=== PATIENT | female | born 1955 | race Caucasian/White ===

== ENCOUNTER 2016-10-27 02:22 | Emergency (ER) | payer BC ==
[~2016-10-27] VITALS: Ht 156.2 cm; Wt 73.0 kg
[2016-10-27 02:26] VITALS: TEMP 36.9; Ht 156.2 cm; Wt 73.0 kg
[2016-10-27] MEDS ORDERED: KETOROLAC TROMETHAMINE 30 MG/ML VIAL IV STA (02:41)
[2016-10-27] MEDS ORDERED: MoRPHine SULFATE 4 MG/ML 1 ML CARP\\VIAL IV STA ×2 (02:41→03:27)
[2016-10-27] MEDS ORDERED: ONDANSETRON INJ 2 MG/ML 2 ML VIAL IV STA (02:41)
[2016-10-27 03:01] LABS: BASO % 0.1 %; BASO ABS # 0.01 K/uL (0-0.2); COMPLETE YES; EOS % 0.9 %; HEMATOCRIT 39.2 % (37-47); IG% 0.5 %; LYMPH % 24.3 %; LYMPH ABS # 3.11 K/uL (1.2-3.4); MEAN CELL VOLUME 91.8 fL (80-100); MEAN CORPUSCULAR HEMOGLOBIN 31.4 pg (25-34); MEAN CORPUSCULAR HGB CONC 34.2 g/dl (32-36); MEAN PLATELET VOLUME 9.2 fL (7.4-10.4); MONO % 10.4 %; NEUT % 63.8 %; PLATELET COUNT 269 K/uL (130-400); RED BLOOD COUNT 4.27 M/uL (4.2-5.4); WHITE BLOOD COUNT 12.79 K/uL (4.8-10.8)
--- NOTE | 2016-10-27 03:38 | EMERGENCY ROOM VISIT NOTE ---
History Report prepared by Mady: Joellen Frias Under the Supervision of: Dr. Taya Bazan D.O. 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 The patient states that she has been seen for her hip pain before and had an X-Ray showing arthritis and tendinitis but states she has not had a MRI. The patient states that she was prescribed a 12 day course of prednisone which she finished yesterday. She states that while taking the medication the pain was released but while she was tapering off the medication the pain returned. She states that movement increases her pain and she is now unable to lift her right leg. The patient denies any fever, chills or vomiting but states she has been experiencing nausea. 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 A total of 10 systems reviewed and were otherwise negative. Past Medical & Surgical Medical Problems: (1) Fracture of distal fibula Family History Patient reports no known family medical history. Social History Smoking Status: Never Smoker Drug Use: none Marital Status: Housing Status: lives with family Occupation Status: employed Current/Historical Medications Scheduled PRN Oxycodone/Acetaminophen 5MG/325MG (Percocet 5MG/325MG), 1 TABLET PO Q4H PRN for Pain Allergies Coded Allergies: Penicillins (Verified Allergy, Mild, HIVES, 01/16/14) Physical Exam Vital Signs Date Time Temp Pulse Resp B/P Pulse Ox O2 Delivery O2 Flow Rate FiO2 10/27/16 04:20 78 16 111/53 94 Room Air 10/27/16 02:26 36.9 87 20 127/83 94 Room Air Physical Exam HEENT: Head - normocephalic and atraumatic Pupils are equal, round, and reactive to light. Extraocular eye muscles are intact, and sclera are anicteric. Nose - moist nasal mucosa without discharge. Mouth - moist buccal mucosa. Oropharynx is nonerythematous and there is no tonsillar exudate or edema noted. Neck: Supple; no JVD, nuchal rigidity, cervical lymphadenopathy. Heart: Regular rate and rhythm. There is a normal S1 and S2 with no murmurs, clicks, or gallops appreciated. Lungs: Clear to auscultation bilaterally with no wheezes, rales, or rhonchi. Abdomen: Soft, completely nontender, nondistended, with good bowel sounds. There are no palpable pulsatile masses or hepatosplenomegaly. There is no guarding, rigidity, or rebound noted. Extremities: No evidence of cyanosis, clubbing, or edema. There are easily palpable peripheral pulses. Exquisite tenderness to palpation over the flexor tendons of the right hip. Skin: warm and dry with good turgor and no rashes. Medical Decision & Procedures Laboratory Results 10/27/16 02:50 Red Blood Count 4.27, Mean Corpuscular Volume 91.8, Mean Corpuscular Hemoglobin 31.4, Mean Corpuscular Hemoglobin Concent 34.2, Mean Platelet Volume 9.2, Neutrophils (%) (Auto) 63.8, Lymphocytes (%) (Auto) 24.3, Monocytes (%) (Auto) 10.4, Eosinophils (%) (Auto) 0.9, Basophils (%) (Auto) 0.1, Neutrophils # (Auto ) 8.15, Lymphocytes # (Auto) 3.11, Monocytes # (Auto) 1.33, Eosinophils # (Auto ) 0.12, Basophils # (Auto) 0.01 Test 10/27/16 02:50 White Blood Count 12.79 K/uL (4.8-10.8) Red Blood Count 4.27 M/uL (4.2-5.4) Hemoglobin 13.4 g/dL (12.0-16.0) Hematocrit 39.2 % (37-47) Mean Corpuscular Volume 91.8 fL (80-100) Mean Corpuscular Hemoglobin 31.4 pg (25-34) Mean Corpuscular Hemoglobin Concent 34.2 g/dl (32-36) Platelet Count 269 K/uL (130-400) Mean Platelet Volume 9.2 fL (7.4-10.4) Neutrophils (%) (Auto) 63.8 % Lymphocytes (%) (Auto) 24.3 % Monocytes (%) (Auto) 10.4 % Eosinophils (%) (Auto) 0.9 % Basophils (%) (Auto) 0.1 % Neutrophils # (Auto) 8.15 K/uL (1.4-6.5) Lymphocytes # (Auto) 3.11 K/uL (1.2-3.4) Monocytes # (Auto) 1.33 K/uL (0.11-0.59) Eosinophils # (Auto) 0.12 K/uL (0-0.5) Basophils # (Auto) 0.01 K/uL (0-0.2) RDW Standard Deviation 43.2 fL (36.4-46.3) RDW Coefficient of Variation 12.9 % (11.5-14.5) Immature Granulocyte % (Auto) 0.5 % Immature Granulocyte # (Auto) 0.07 K/uL (0.00-0.02) Erythrocyte Sedimentation Rate 9 mm/hr (0-21) C-Reactive Protein 2.05 mg/dl (0-0.29) Laboratory results per my review. Medications Administered Medications (Trade) Dose Ordered Sig/Luisa Route Start Time Stop Time Status Last Admin Dose Admin Ketorolac Tromethamine (Toradol Inj) 30 mg NOW STAT IV 10/27/16 02:41 10/27/16 02:43 DC 10/27/16 03:03 30 MG Morphine Sulfate (MoRPHine SULFATE INJ) 4 mg NOW STAT IV 10/27/16 02:41 10/27/16 02:43 DC 10/27/16 03:02 4 MG Ondansetron HCl (Zofran Inj) 4 mg NOW STAT IV 10/27/16 02:41 10/27/16 02:43 DC 10/27/16 03:02 4 MG Morphine Sulfate (MoRPHine SULFATE INJ) 4 mg NOW STAT IV 10/27/16 03:27 10/27/16 03:28 DC 10/27/16 03:41 4 MG Procedure Medications Administered: Zofran Inj Morphine Sulfate Toradol Inj Percocet 5/325 MG Home Pack ED Course 0237: Past medical records reviewed. The patient was evaluated in room A2. A complete history and physical exam was performed. An IV lock was initiated and labs are drawn as above. 0241: Ordered Zofran Inj 4 mg IV, Morphine Sulfate 4 mg IV, Toradol Inj 30 mg IV. 0325: The patient states that she had relief from the pain but the pain is starting to return. 0327: Ordered Morphine Sulfate 4 mg IV 0342: I revaluated the patient and she states she is feeling much better. 0410: Upon reevaluation, the patient is feeling better. I discussed findings and results with her. She verbalized agreement of the treatment plan. The patient was discharged home. 0415: Ordered Oxycodone/Acetaminophen 1 homepack PO. Medical Decision The patient is a 61 year old female who presents to the ED with right hip pain. Differential diagnosis includes bursitis, tendonitis, septic joint. Labs: White count 12.7 Stable H&H SED Rate 9 C-Reaction Protein 2.05 The patient has been followed by Dr. Meier and had injections in her right hip for bursitis and tendinitis. She has recently finished a course of steroids. The patient's pain became unbearable tonight. She received IV Toradol and morphine with significant relief of her pain. She will be given a prescription for Percocet to use at home and have close follow-up with her orthopedic surgeon. She is afebrile and has no significant leukocytosis. Sedimentation rate was normal but C-reactive protein was slightly elevated. [place] Drug Monitoring Program Search Results: patient reviewed within database, no issues identified Impression Primary Impression: Tendonitis of right hip Scribe Attestation The scribe's documentation has been prepared under my direction and personally reviewed by me in its entirety. I confirm that the note above accurately reflects all work, treatment, procedures, and medical decision making performed by me. Departure Information Dispostion Home / Self-Care Prescriptions Oxycodone/Acetaminophen 5MG/325MG (PERCOCET 5MG/325MG) Tab 1 TABLET PO Q4H Y for Pain, #20 TAB Prov: Taya Bazan D.O. 10/27/16 Referrals StefanJanuary IRINA (PCP) Forms HOME CARE DOCUMENTATION FORM, IMPORTANT VISIT INFORMATION, WORK / SCHOOL INSTRUCTIONS Patient Instructions A Signature Page, My [employer] Additional Instructions Rest. Take percocet - 1 tab. every 4 hours for pain Take a stool softner Return to the ER for worsening symptoms or fever
[2016-10-27] MEDS ORDERED: PERCOCET HOME PACK PO ONE (04:15)
[2016-10-27] MEDS ORDERED: OXYC-57 PO (04:18)
[2016-10-27 04:20] VITALS: BP 111/53; PULSE 78; O2SAT 94
== END 2016-10-27 04:38 | disposition home or self-care (01) ==
LOC: C.EDB 02:23 → C.EDA 04:38
DX: M65.88 Other synovitis and tenosynovitis, other site (principal)

== ENCOUNTER → 2016-11-01 | Outpatient (CLI) | payer BC ==
[~2016-11-01] MED LIST: OXYC-57 PO
--- NOTE | 2016-11-02 10:23 | DIAGNOSTIC IMAGING REPORT ---
MRI OF THE RIGHT HIP WITHOUT CONTRAST CLINICAL HISTORY: Persistent right hip pain. COMPARISON STUDY: None TECHNIQUE: Utilizing a 1.5 Evonne magnet and dedicated coil, multiplanar, multiecho imaging of the right hip was performed without intravenous or intraarticular contrast. FINDINGS: The sacroiliac joints and symphysis pubis are intact. No marrow replacement or marrow edema is identified. There is no evidence for avascular necrosis of the femoral heads. No mass or fluid collection is shown adjacent to the right hip. There is mild edema within the musculature adjacent to the right hip and right hemipelvis, including minimal edema adjacent to the proximal hamstrings. This is nonspecific. No pelvic lymphadenopathy is present. IMPRESSION: 1. No marrow edema or marrow replacement. 2. Mild to moderate arthritis of the right hip. 3. Mild multifocal muscular edema adjacent to the right hip and right hemipelvis. This finding is nonspecific and differential considerations include traumatic and inflammatory etiologies. Electronically signed by: Bridger Triana M.D. 11/02/2016 10:22 AM Dictated Date/Time: 11/01/2016 4:43 PM
== END | disposition home or self-care (01) ==
LOC: C.MRIBC 15:23
PROVIDERS: ATTEND Orthopaedic Surgery
DX: M16.11 Unilateral primary osteoarthritis, right hip (principal)

== ENCOUNTER → 2016-12-27 | Outpatient (CLI) | payer BC ==
--- NOTE | 2016-12-27 14:45 | DIAGNOSTIC IMAGING REPORT ---
FLUOROSCOPICALLY GUIDED RIGHT HIP ANESTHETIC AND STEROID INJECTION CLINICAL HISTORY: Right hip pain COMPARISON STUDY: MRI dated 11/01/2016 FLUOROSCOPY TIME: 11 seconds. A single fluoroscopic spot image was obtained. FINDINGS: A timeout was performed. The risks of the procedure were explained to the patient and informed consent was obtained. The patient was prepped and draped in sterile fashion. The skin was anesthetized 1% lidocaine. Under fluoroscopic guidance, a 22-gauge spinal needle was introduced into the joint capsule. Water-soluble contrast was injected to document intratesticular location. A single fluoroscopic spot image was obtained. 3 cc of 1% Xylocaine, and 4 mg of dexamethasone, and 20 mg of Depo-Medrol were instilled into the joint capsule. IMPRESSION: Successful intra-articular right hip injection. Electronically signed by: Jamshid Neal M.D. 12/27/2016 2:43 PM Dictated Date/Time: 12/27/2016 2:41 PM
== END | disposition home or self-care (01) ==
LOC: C.RADBC 13:38
PROVIDERS: ATTEND Orthopaedic Surgery
DX: M25.551 Pain in right hip (principal)

== ENCOUNTER → 2017-01-06 | Outpatient (CLI) | payer BC ==
--- NOTE | 2017-01-06 16:08 | MAMMOGRAPHY REPORT ---
BILATERAL DIGITAL SCREENING MAMMOGRAM WITH CAD: 01/06/2017 CLINICAL HISTORY: Routine screening. Patient has no complaints. TECHNIQUE: Bilateral CC and MLO views were obtained. Current study was also evaluated with a Compu ter Aided Detection (CAD) system. COMPARISON: Comparison is made to exams dated: 12/12/2015 mammogram, 11/16/2013 mammogram, 12/02/2014 m ammogram, 11/11/2012 mammogram, 10/29/2011 mammogram, and 10/18/2010 mammogram - [facility]. BREAST COMPOSITION: There are scattered areas of fibroglandular density in both breasts. FINDINGS: There is stable asymmetry in the left breast. Mild vascular calcification bilaterally. N o suspicious mass, architectural distortion or cluster of microcalcifications is seen. IMPRESSION: ACR BI-RADS CATEGORY 1: NEGATIVE There is no mammographic evidence of malignancy. A 1 year screening mammogram is recommended. The p atient will receive written notification of the results. Approximately 10% of breast cancers are not detected with mammography. A negative mammographic repor t should not delay biopsy if a clinically suggestive mass is present. Carolina Trejo M.D. ay/:01/06/2017 16:03:13 Dial Mounter: Jackie BUNN(R)(M), [facility] letter sent: Normal 1/2 BI-RADS Code: ACR BI-RADS Category 1: Negative
== END | disposition home or self-care (01) ==
LOC: C.MAMM 13:30
PROVIDERS: ATTEND Family Medicine
DX: Z12.31 Encounter for screening mammogram for malignant neoplasm of breast (principal)

== ENCOUNTER → 2018-01-13 | Outpatient (CLI) | payer OTHER ==
--- NOTE | 2018-01-13 14:57 | MAMMOGRAPHY REPORT ---
BILATERAL DIGITAL SCREENING MAMMOGRAM TOMOSYNTHESIS WITH CAD: 01/13/2018 CLINICAL HISTORY: Routine screening. Patient has no complaints. TECHNIQUE: Breast tomosynthesis in addition to standard 2D mammography was performed. Current study was also evaluated with a Computer Aided Detection (CAD) system. COMPARISON: Comparison is made to exams dated: 01/06/2017 mammogram, 12/12/2015 mammogram, 12/02/2014 ma mmogram, 11/16/2013 mammogram, 11/11/2012 mammogram, and 10/18/2010 mammogram - [facility]. BREAST COMPOSITION: There are scattered areas of fibroglandular density in both breasts. FINDINGS: No suspicious masses, calcifications, or areas of architectural distortion are noted in ei ther breast. There has been no significant interval change compared to prior exams. Scattered bilater al benign-appearing calcifications are not significantly changed. IMPRESSION: ACR BI-RADS CATEGORY 2: BENIGN There is no mammographic evidence of malignancy. A 1 year screening mammogram is recommended. The pa tient will receive written notification of the results. Approximately 10% of breast cancers are not detected with mammography. A negative mammographic report should not delay biopsy if a clinically suggestive mass is present. Loren Alvarez M.D. /:01/13/2018 07:31:33 Cloth Mercerizer Back Tender: Andressa Abreu, [facility] letter sent: Normal 1/2 BI-RADS Code: ACR BI-RADS Category 2: Benign
== END | disposition home or self-care (01) ==
LOC: C.MAMM 07:08
PROVIDERS: ATTEND Physician Assistant
DX: Z12.31 Encounter for screening mammogram for malignant neoplasm of breast (principal)

== ENCOUNTER 2019-01-08 09:14 | Inpatient (IN) ==
--- NOTE | 2018-12-15 11:31 | Anesthesiology Consultation ---
Date of Service December 15, 2018 Assessment & Plan (1) Encounter for pre-operative examination: Chart Review Chart Review: Acceptable Risk for Surgery and Patient seen in Pre Admission Testing Teaching & Discussion Instructed NPO after midnight before surgery, except medications with 15 cc of water. Medication instructions provided according to the PAT guidelines. History Surgery Operation Date: 01/08/19 13:05 Proposed Procedures p Right Total Knee Arthroplasty - Shar Elliott, Height/Weight Height: 5 ft 2 in Weight: 81.2 kg Allergies Allergy/AdvReac Type Severity Reaction Status Date / Time Penicillins Allergy Mild HIVES,RASH Verified 12/08/18 08:39 atorvastatin [From Lipitor] AdvReac Unknown Joint Pain Verified 12/08/18 08:39 Medications Home Medications Medication Instructions Recorded Confirmed Last Taken Black Seed Oil 5 ml PO BID 12/08/18 12/08/18 Unknown Ca carb-Ca gluc-Mg ox-Mg gluco 1 tab PO BID 12/08/18 12/08/18 Unknown [Calcium Magnesium] levothyroxine [Synthroid] 25 mcg PO QAM 12/08/18 12/08/18 Unknown meclizine 12.5 mg PO TID PRN 12/08/18 12/08/18 Unknown [id number] 2 tab PO BID 12/08/18 12/08/18 Unknown [Eye [place] Advantage] Past Medical History Medical History Chronic back pain TO RIGHT LEG Depression HX GERD (gastroesophageal reflux disease) Hypothyroidism Migraine HX Osteoarthritis PMR (polymyalgia rheumatica) Vertigo F/U PCP-DOING EXERCISES Past Surgical History Surgical History H/O foot surgery BUNIONECTOMY History of bilateral tubal ligation History of carpal tunnel release R/L History of eye surgery MUSCLE SURG A CHILD History of hysterectomy OVARIES REMAIN Trigger finger SURGERY R HAND Past Anesthesia History No Hx of Anesthesia Complications and No Family Hx of Anesthesia Complications History of PONV No Motion Sickness Screening History of Motion Sickness: Yes (occ) Social History Smoking Status: Never smoker Do You Dip or Chew Tobacco: No Hx Alcohol Use: Yes Alcohol type: wine alcohol intake frequency: a few times a week Hx Substance Use: No substance use type: does not use Exercise / Class Metabolic Activity II 4-5 Yardwork/Stairs/Walk up hill (denies CP or SOB with stairs) Review of Systems Pt denies any recent chest pain, shortness of breath, palpitations, fever or URI. +recent mild cough/cold, resolving with OTC treatment Physical Exam Vital Signs BP: 133/83 (pt reports this is high for her, does feel anxious today) P: 73 bpm SPO2: 97% RA T: 98.1 F R: 16 ENMT Mouth: + dental bridge (upper R side) and + dental restorations (temporary crown to be finished 12/16); no chipped teeth and no loose teeth Thyromental Distance: > or= 3.5 Finger Breadths (3.5) Mallampati Class: III Neck normal visual inspection; neck extension not limited Respiratory normal respiratory effort Auscultation: lungs clear to auscultation bilaterally Cardiovascular Rate/Rhythm: regular rate and regular rhythm Heart Sounds: no murmur Vessels: no carotid bruit Extremities: no edema Testing Electrocardiogram Date: 12/15/18 Findings: + NSR @ (69) Voltage criteria for LVH. Chest X-Ray Date: 12/15/18 Findings: + NAD Laboratory Results 12/15/18 11:25 12/15/18 11:25 Blood Type O Negative 12/15/18 11:25 Antibody Screen NEGATIVE 12/15/18 11:25 PT 9.4 Seconds (9.0-12.0) 12/15/18 11:25 INR 0.9 (0.9-1.1) 12/15/18 11:25 APTT 23.8 Seconds (21.0-31.0) 12/15/18 11:25
--- NOTE | 2018-12-15 11:32 | PAT Medication Instructions ---
Medication Instructions Date of Service December 15, 2018 Home Medications Black Seed Oil 5 ml PO BID [Calcium Magnesium] 1 tab PO BID levothyroxine [Synthroid] 25 mcg PO QAM meclizine 12.5 mg PO TID PRN [Eye [place] Advantage] 2 tab PO BID STOP taking 2 weeks before surgery Black Seed Oil 5 ml PO BID [Eye [place] Advantage] 2 tab PO BID DO NOT take the morning of surgery [Calcium Magnesium] 1 tab PO BID Take morning of surgery With a small sip of water, OTHERWISE NOTHING TO EAT OR DRINK AFTER MIDNIGHT: levothyroxine [Synthroid] 25 mcg PO QAM meclizine 12.5 mg PO TID PRN (if needed) Take evening before surgery [Calcium Magnesium] 1 tab PO BID meclizine 12.5 mg PO TID PRN (if needed) Other Notes If you have any questions please call us at [phone] or [phone] or [phone] or [phone]
--- NOTE | 2018-12-15 12:09 | XRay Report ---
XR chest Pre-admission PA/Lat HISTORY: 63 years-old Female pat preoperative exam. No acute chest complaints COMPARISON: None available TECHNIQUE: PA and lateral views of the chest FINDINGS: Cardiomediastinal and hilar silhouettes are within normal limits. There is no pneumothorax, pleural e ffusion, focal airspace consolidation or overt pulmonary edema. Degenerative changes of the shoulders and spine. IMPRESSION: No acute process. The above report was generated using voice recognition software. It may contain grammatical, syntax o r spelling errors. Electronically signed by: Suresh Crump M.D. 12/15/2018 12:07 PM
[2018-12-15 12:55] LABS: Basophils # (auto) 0.01 K/uL (0-0.2); Basophils % (auto) 0.2 %; Eosinophils # (auto) 0.13 K/uL (0-0.5); Eosinophils % (auto) 2.3 %; Hemoglobin 13.2 g/dL (12.0-16.0); Immature Granulocytes # (auto) 0.01 K/uL (0.00-0.02); Immature Granulocytes % (auto) 0.2 %; Lymphocytes # (auto) 2.12 K/uL (1.2-3.4); Mean Corpuscular Volume 94.3 fL (80-100); Mean Platelet Volume 9.6 fL (7.4-10.4); Monocytes # (auto) 0.42 K/uL (0.11-0.59); Monocytes % (auto) 7.3 %; Neutrophils # (auto) 3.04 K/uL (1.4-6.5); Platelet Count 281 K/uL (130-400); RDW Coefficient of Variation 12.6 % (11.5-14.5); RDW Standard Deviation 43.2 fL (36.4-46.3); Red Blood Count 4.24 M/uL (4.2-5.4); White Blood Count 5.73 K/uL (4.8-10.8)
[2018-12-15 13:07] LABS: INR 0.9 (0.9-1.1); Partial Thromboplastin Ratio 0.9; Partial Thromboplastin Time 23.8 Seconds (21.0-31.0); Prothrombin Time 9.4 Seconds (9.0-12.0)
[2018-12-15 13:30] LABS: BUN Creatinine Ratio 22.8 (10-20); Calcium 9.1 mg/dl (8.5-10.1); Creatinine Clr Calc Pharmacy 81.4 ml/min; Est GFR (African American) 106.4; Est GFR (Non-African American) 91.8; Potassium 3.5 mmol/L (3.5-5.1)
--- NOTE | 2019-01-07 20:24 | History & Physical Report ---
Date of Service January 07, 2019 Assessment & Plan (1) Osteoarthritis of right knee: We will proceed with a right total knee arthroplasty. Postoperatively she will be started on aspirin for DVT prophylaxis. She will be kept overnight at the hospital for postoperative medical management. She plans to use energy physical therapy upon discharge. Present on Admission?: Yes History of Present Illness Chief Complaint: Primary osteoarthritis of the right knee Primary Care Provider: Astrid Aviles PA-C Patient is a pleasant 63-year-old female who is been dealing with chronic increasing right knee pain. X-rays, MRI, and clinical examination have all been diagnostic for advanced osteoarthritis of the right knee. After failing extensive conservative treatment, she has elected proceed with a right total knee arthroplasty. Allergies Allergy/AdvReac Type Severity Reaction Status Date / Time Penicillins Allergy Mild HIVES,RASH Verified 12/08/18 08:39 atorvastatin [From Lipitor] AdvReac Unknown Joint Pain Verified 12/08/18 08:39 Home Medications Home Medications Medication Instructions Recorded Confirmed Type Black Seed Oil 5 ml PO BID 12/08/18 12/08/18 History Ca carb-Ca gluc-Mg ox-Mg gluco 1 tab PO BID 12/08/18 12/08/18 History [Calcium Magnesium] levothyroxine [Synthroid] 25 mcg PO QAM 12/08/18 12/08/18 History meclizine 12.5 mg PO TID PRN 12/08/18 12/08/18 History [id number] 2 tab PO BID 12/08/18 12/08/18 History [Eye [place] Advantage] Past Med/Surg History Medical History Chronic back pain TO RIGHT LEG Depression HX GERD (gastroesophageal reflux disease) Hypothyroidism Migraine HX Osteoarthritis PMR (polymyalgia rheumatica) Vertigo F/U PCP-DOING EXERCISES Surgical History H/O foot surgery BUNIONECTOMY History of bilateral tubal ligation History of carpal tunnel release R/L History of eye surgery MUSCLE SURG A CHILD History of hysterectomy OVARIES REMAIN Trigger finger SURGERY R HAND Social History Preferred Language: Wolof Communication Ability: Effective Motor Man Required: No Beliefs That Will Affect Care: None Current Living Situation: Spouse Other Information That Helps Us Care for You: No Feels Safe at Home: Yes Safety Concerns: Feels Safe At This Time Smoking Status: Never smoker Hx Alcohol Use: Yes Hx Substance Use: No Review of Systems All systems reviewed & are unremarkable except as noted in HPI & below Physical Exam Constitutional: WD/WN, vitals as above Eyes: PERRL, conjunctivae normal, anicteric sclerae ENMT: external ear and nose normal, oropharynx normal Neck: trachea midline, no thyromegaly Respiratory: normal respiratory effort Cardiovascular: RRR, no murmur, no edema Gastrointestinal (Abdomen): normal bowel sounds, soft, nontender, no hepatosplenomegaly Musculoskeletal: On physical examination of the right knee there is a trace effusion. There is near full range of motion and no evidence of instability. There is significant tenderness palpation along the medial and lateral joint lines and over the distal femoral condyles. Psychiatric: A+Ox3, euthymic affect Results & Data Diagnostic Findings Radiographs of the right knee demonstrate advanced osteoarthritis with joint space narrowing osteophyte formation and [id number] articulation.
[~2019-01-08 09:14] MED LIST changes: +ACETAMINOPHEN 500 MG TAB PO SCH; +BUPIVACAINE 0.5 % 5 MG/1 ML PF 10ML VIAL ONE; +CEFAZOLIN 2000MG 2,000 MG/15 ML SYR IV SCH; +FAMOTIDINE 20 MG TAB PO SCH; +GABAPENTIN 300 MG PO SCH; +LR 500ML BOLUS, THEN 15ML/HR IV SCH; +LR 60ML/HR IV SCH; -OXYC-57 PO; +ROPIVACAINE 0.5% 5 MG/ML 30 ML VIAL ONE; +ROPIVACAINE 0.5% HCL/PF 150 MG, BUPIVACAINE 0.5% MPF 30 ML, EPINEPHrine 30MG/30ML (OR U... INFIL SCH; +TRANEXAMIC ACID 1,000 MG **IV Intra-op IV SCH; +TRANEXAMIC ACID 1,000 MG **IV Pre-op IV SCH
[2019-01-08] MEDS ORDERED: MIDAZOLAM HCL 1 MG/ML 2ML VIAL ONE ×2 (09:34→12:24)
[2019-01-08] MEDS ORDERED: fentaNYL citrate 100 MCG/2 ML VIAL ONE (09:34)
[2019-01-08] MEDS ORDERED: PHENYLEPHRINE 100MCG/ML 5ML SYR IV PRN (10:17)
[2019-01-08] MEDS ORDERED: ePHEDrine sulfate 50 MG/ML AMP IV PRN (10:17)
[2019-01-08] MEDS ORDERED: ONDANSETRON INJ 2 MG/ML 2 ML VIAL IV PRN ×2 (10:17→15:02)
[2019-01-08] MEDS ORDERED: ATROPINE SULFATE 0.1 MG/ML 10ML SYR IV PRN (10:17)
[2019-01-08] MEDS ORDERED: HYDROmorphone INJ 1 MG/ML SYRINGE IV PRN (10:17)
[2019-01-08] MEDS ORDERED: PROMETHAZINE HCL 12.5 MG in SODIUM CHLORIDE 0.9% 50 ML IV PRN (10:17)
[2019-01-08] MEDS ORDERED: fentaNYL citrate 100 MCG/2 ML VIAL IV PRN (10:17)
--- NOTE | 2019-01-08 10:24 | History & Physical Bridge Note ---
Date of Service January 08, 2019 History & Physical Bridge Note I have examined the patient, reviewed the History & Physical and in the interval since the performance of the History & Physical I have noted the following changes of clinical significance: no changes noted
[2019-01-08] MEDS ORDERED: ORTHO JOINT ANESTHETIC ONE (10:56)
[2019-01-08] MEDS ORDERED: POVIDONE-IODINE OP SOLN 30 ML BTL ONE (10:56)
--- NOTE | 2019-01-08 13:24 | Operative Report ---
Post Operative Report Pre & Post Diagnosis Operation Date: 01/08/19 11:30 Pre-Op Diagnosis: Right Knee Osteoarthritis Post-Op Diagnosis: Right Knee Osteoarthritis Procedure Operation Date: 01/08/19 11:30 Actual Procedures p Right Total Knee Arthroplasty(Right) - Shar Elliott DO Surgeon Shar Elliott DO Customer Development Manager Shar Herrera PAC Estimated Blood Loss 50 Findings Consistent with Post-Op Diagnosis Specimens Right femoral and tibial bone Complications none Disposition Disposition: Recovery Room Indications Patient is a pleasant 63-year-old female who presented my office with complaints of chronic increasing right knee pain. X-rays and clinical examination were diagnostic for primary osteoarthritis of the right knee. After failing conservative treatment, she elected to proceed with a right total knee arthroplasty. Description of Procedure Implants used: I used a [employer]omet Vanguard total knee arthroplasty system with a size 62.5 femur, 63 tibia, 28 patella, and a size 10 PS polyethylene bearing. All components were cemented in place with Palacos G cement. The patient arrived [facility] for the above procedure. There were seen in the preoperative holding area and the operative extremity was identified and signed. There were given a preoperative antibiotic, a spinal anesthetic and an adductor nerve block. There were taken back to the operating room and laid on the table in supine position. There were given basic sedation. The operative knee was then prepped and draped in sterile fashion. A timeout was done, and the patient and the operative extremity was properly identified. A midline incision was made directly over the patella. Dissection was taken down to the extensor mechanism. A subvastus arthrotomy was used. The medial retinaculum was released and the fat pad was mostly left intact. The knee was flexed and the ACL, PCL, and meniscus were removed. A drill was sent down the center of the femoral canal followed by an intramedullary sri. Off that sri a distal femoral cutting block was placed. 9 mm was resected off the distal femur at 5 of valgus. A posterior referencing AP sizing guide was then placed on the distal femur. The femur measured to be a size 62.5. 2 drill holes were placed in 3 of external rotation. A 4-in-1 cutting block was then impacted into place. Anterior posterior and chamfer cuts were then made. The posterior stabilizing box guide was then impacted into place and the box was resected for the posterior stabilizing component. The proximal tibia was then exposed. A drill was sent down the center of the tibial canal followed by an intramedullary sri. Off that sri a proximal tibial resection guide was placed. The proximal tibia was then resected. The tibia measured to be a size 63. The tibial plate was then placed in the appropriate rotation and the tibia was punched. The posterior aspect of the knee was then opened up and any additional meniscus fragments and osteophytes were removed. Trial components were then placed. I used a size 10 PS polyethylene insert. The knee was brought through a full range of motion and felt to be stable. The patella was then everted and 8 mm was resected off the posterior aspect of the patella. The patella measured to be a size 28. 3 peg holes were then drilled. A trial patella was placed. The knee was once again brought through a full range of motion and felt to be stable. Trial components were then removed. The surrounding soft tissues were injected with 100 cc of an orthopedic pain control cocktail. All components were then cemented into place with Palacos G cement. The final polyethylene insert was then snapped into place and the anterior bar was locked. Once cement was dry the tourniquet was deflated. Hemostasis was obtained. A dilute betadyne lavage was then done for 3 minutes. The joint was then irrigated with normal saline solution. The subvastus arthrotomy was then closed with #1 Vicryl suture. The skin was closed with 2-0 Vicryl, 3-0V lock suture, and laina. A soft compressive dressing was placed. The patient was then transferred to a hospital bed and taken to the postanesthesia care unit in stable condition. They tolerated the procedure well. I attest to the content of the Intraoperative Record and any orders documented therein. Any exceptions are noted below.
[2019-01-08] MEDS ORDERED: LIDOCAINE HCL 2% 2 ML VIAL/AMP(20MG/ML) INFIL ONE (13:46)
[2019-01-08] MEDS ORDERED: PROPOFOL IV EMULSION 10 MG/ML 20 ML VIAL IV ONE (13:46)
--- NOTE | 2019-01-08 14:09 | Anesthesiology Progress Note ---
Date of Service January 08, 2019 Anesthesia Post Procedure Vital Signs Vital Signs: Temp Pulse Pulse Resp BP Pulse Ox 01/08/19 14:00 71 16 116/65 100 01/08/19 13:50 36.3 C L 82 16 117/71 100 01/08/19 10:04 36.7 C 88 18 149/83 H 99 Pain Intensity Right Knee: Pain Intensity: 6 Notes Mental Status: alert / awake / arousable Patient Amnestic to Procedure: Yes Nausea / Vomiting: adequately controlled Pain: adequately controlled Airway Patency, RR, SpO2: stable & adequate BP & HR: stable & adequate Neuraxial Anesthesia: was administered and sensory block is resolving Anesthetic Complications: no major complications apparent
--- NOTE | 2019-01-08 14:18 | XRay Report ---
TWO VIEWS RIGHT KNEE CLINICAL HISTORY: Postoperative examination. FINDINGS: AP and crosstable lateral portable views of the right knee are obtained. A right knee arthr oplasty is in near anatomic alignment. There has been undersurface remodeling of the patella. No acut e fracture is seen. There are expected postoperative changes around the knee including skin clips, so ft tissue edema, and subcutaneous gas. IMPRESSION: Expected postoperative changes status post right knee arthroplasty. No acute fracture is seen. Electronically signed by: Dani Raymond M.D. 01/08/2019 2:17 PM
[2019-01-08] MEDS ORDERED: NALOXONE HCL 0.4 MG/1 ML VIAL/CARP IV PRN (15:02)
[2019-01-08] MEDS ORDERED: METOCLOPRAMIDE HCL INJ 5 MG/ML 2 ML VIAL IV PRN (15:02)
[2019-01-08] MEDS ORDERED: MAGNESIUM HYDROXIDE SUSP 30 ML UDC PO PRN (15:02)
[2019-01-08] MEDS ORDERED: BISACODYL 10 MG SUPP PR PRN (15:02)
[2019-01-08] MEDS ORDERED: SODIUM CHLORIDE 0.9% 1000ML 1,000 ML IV SCH (16:15)
[2019-01-08] MEDS: ACETAMINOPHEN 500 MG TAB PO SCH ×2 (17:00→22:05)
[2019-01-08] MEDS: KETOROLAC TROMETHAMINE 15 MG/ML VIAL IV SCH ×2 (17:00→22:05)
[2019-01-08] MEDS: OXYCODONE HCL IR 5 MG TAB (IMMEDIATE RELEASE) PO PRN ×2 (18:26→23:44)
[2019-01-08] MEDS: CEFAZOLIN 2000MG 2,000 MG/15 ML SYR IV SCH (19:53)
[2019-01-08] MEDS: DOCUSATE SODIUM 100 MG CAP PO SCH (19:54)
[2019-01-08] MEDS: ASPIRIN 81 MG ECTAB PO SCH (19:54)
[2019-01-08] MEDS: SENNA 8.6 MG TAB PO SCH (19:55)
[2019-01-09] MEDS: CEFAZOLIN 2000MG 2,000 MG/15 ML SYR IV SCH (04:16)
[2019-01-09] MEDS: KETOROLAC TROMETHAMINE 15 MG/ML VIAL IV SCH ×4 (04:16→20:54)
[2019-01-09] MEDS: ACETAMINOPHEN 500 MG TAB PO SCH ×2 (05:49→15:24)
[2019-01-09] MEDS: LEVOTHYROXINE SODIUM 25 MCG TABLET PO SCH (05:50)
[2019-01-09 06:19] LABS: Hematocrit (blood only) 32.5 % (37-47); Hemoglobin 11.1 g/dL (12.0-16.0); Mean Corpuscular Hgb Conc 34.2 g/dL (32-36); Mean Corpuscular Volume 91.5 fL (80-100); Mean Platelet Volume 9.7 fL (7.4-10.4); Platelet Count 213 K/uL (130-400); RDW Coefficient of Variation 12.1 % (11.5-14.5); RDW Standard Deviation 40.7 fL (36.4-46.3); Red Blood Count 3.55 M/uL (4.2-5.4); White Blood Count 10.02 K/uL (4.8-10.8)
--- NOTE | 2019-01-09 06:38 | Orthopedic Progress Note ---
Date of Service January 09, 2019 Assessment & Plan (1) Osteoarthritis of right knee: Overall she is doing fairly well. She is already been up and ambulating some. I reassured her that the tingling in her foot should subside later today. She is on aspirin for DVT prophylaxis. She will be seen by physical therapy today for range of motion exercises. We plan to discharge her to home tomorrow morning. Present on Admission?: Yes Neda Rogders was seen and examined at bedside this morning. Overall she is doing fairly well. She is having a little bit of pain in her knee. She still has a little bit of numbness in her right foot. She is been up and ambulating to the bathroom. She had no acute events overnight. She currently has no complaints. Physical Exam Vital Signs (Past 24 Hours): Last Vital Signs Temp 36.5 C 01/09/19 03:05 Pulse 62 01/09/19 03:05 Resp 14 01/09/19 03:05 BP 100/63 01/09/19 03:05 Pulse Ox 97 01/09/19 03:05 Musculoskeletal: On physical examination of the right knee, the dressing is clean and dry. Her legs out in full extension. She is active dorsiflexion and plantarflexion of her right ankle. She still is a little bit of tingling in her right foot. Results & Data Laboratory Results H & H 12/15/18 01/09/19 Range/Units 11:25 05:53 Hgb 13.2 11.1 L (12.0-16.0) g/dL Hct 40.0 32.5 L (37-47) % Coagulation 12/15/18 Range/Units 11:25 INR 0.9 (0.9-1.1) Diagnostic Findings Postoperative x-rays of the right knee show the prosthesis to be in anatomic alignment without any evidence of fracture, dislocation, or loosening.
[2019-01-09 06:53] LABS: BUN Creatinine Ratio 17.5 (10-20); Calcium 8.8 mg/dl (8.5-10.1); Creatinine Clr Calc Pharmacy 71.9 ml/min; Est GFR (African American) 93.9
--- NOTE | 2019-01-09 08:35 | Anesthesiology Progress Note ---
Date of Service January 09, 2019 Anesthesia Post Procedure Vital Signs Vital Signs: Temp Pulse Pulse Resp BP Pulse Ox 01/09/19 07:00 36.6 C 64 16 103/64 96 01/09/19 03:05 36.5 C 62 14 100/63 97 01/08/19 23:23 36.5 C 58 L 14 103/67 96 01/08/19 19:42 36.8 C 76 20 101/64 98 01/08/19 17:26 36.6 C 61 20 113/75 97 01/08/19 16:43 60 16 115/74 99 01/08/19 15:30 36.8 C 58 L 20 110/71 97 01/08/19 14:59 36.3 C L 59 L 16 111/68 97 01/08/19 14:30 36.4 C L 70 16 109/69 100 01/08/19 14:20 36.4 C L 70 16 113/61 100 01/08/19 14:10 72 16 120/68 100 01/08/19 14:00 71 16 116/65 100 01/08/19 13:50 36.3 C L 82 16 117/71 100 01/08/19 10:04 36.7 C 88 18 149/83 H 99 Pain Intensity Right Knee: Pain Intensity: 7 Notes Mental Status: alert / awake / arousable Patient Amnestic to Procedure: Yes Nausea / Vomiting: adequately controlled Pain: adequately controlled Airway Patency, RR, SpO2: stable & adequate BP & HR: stable & adequate Neuraxial Anesthesia: was administered and sensory block is resolving Anesthetic Complications: no major complications apparent Notes: POD #1 s/p R TKA. Pt doing well, no complaints. Has been up OOB and tolerating PO. VSS
[2019-01-09] MEDS: ASPIRIN 81 MG ECTAB PO SCH ×2 (08:50→20:54)
[2019-01-09] MEDS: DOCUSATE SODIUM 100 MG CAP PO SCH ×2 (08:50→20:54)
[2019-01-09] MEDS: MULTIVITAMIN TAB PO SCH (08:50)
[2019-01-09] MEDS: OXYCODONE HCL IR 5 MG TAB (IMMEDIATE RELEASE) PO PRN ×4 (08:55→22:11)
[2019-01-09] MEDS ORDERED: Nursing to Pharmacy Communication ONE (14:16)
[2019-01-09] MEDS: HYDROmorphone INJ 0.5 MG/0.5 ML SYR IV PRN ×2 (16:12→23:14)
[2019-01-09] MEDS: SENNA 8.6 MG TAB PO SCH (20:54)
[2019-01-10] MEDS: ACETAMINOPHEN 500 MG TAB PO SCH ×2 (00:47→08:42)
[2019-01-10] MEDS: KETOROLAC TROMETHAMINE 15 MG/ML VIAL IV SCH ×2 (03:32→10:59)
[2019-01-10] MEDS: LEVOTHYROXINE SODIUM 25 MCG TABLET PO SCH (06:19)
[2019-01-10] MEDS: OXYCODONE HCL IR 5 MG TAB (IMMEDIATE RELEASE) PO PRN (08:42)
[2019-01-10] MEDS: DOCUSATE SODIUM 100 MG CAP PO SCH (08:43)
[2019-01-10] MEDS: ASPIRIN 81 MG ECTAB PO SCH (08:43)
[2019-01-10] MEDS: MULTIVITAMIN TAB PO SCH (08:43)
--- NOTE | 2019-01-10 08:47 | Orthopedic Progress Note ---
Date of Service January 10, 2019 Assessment & Plan (1) Osteoarthritis of right knee: Overall she is doing very well. She is not having much pain in the knee at this time. She will be seen by physical therapy again this morning. I plan to discharge her to home later this morning with home physical therapy. She will follow-up with orthopedics in 2 weeks. She is on aspirin for DVT prophylaxis. Present on Admission?: Yes Subjective Patient was seen and examined at bedside this morning. Overall she is doing fairly well. She had a lot of pain yesterday with physical therapy. She was able to ambulate into the hallways. She is feeling better today. She is looking forward to going home. Physical Exam Vital Signs (Past 24 Hours): Last Vital Signs Temp 36.8 C 01/10/19 07:00 Pulse 77 01/10/19 07:00 Resp 16 01/10/19 07:00 BP 106/67 01/10/19 07:00 Pulse Ox 97 01/10/19 07:00 Musculoskeletal: On physical examination of the right knee, the dressing has been changed and the incision is open to air. There is no drainage from the incision. She is active dorsiflexion and plantarflexion of her right ankle. Sensation is intact.
--- NOTE | 2019-01-11 09:31 | Discharge Summary ---
Date of Service January 13, 2019 Admission HPI Per Admitting Provider Patient is a pleasant 63-year-old female who is been dealing with chronic increasing right knee pain. X-rays, MRI, and clinical examination have all been diagnostic for advanced osteoarthritis of the right knee. After failing extensive conservative treatment, she has elected proceed with a right total knee arthroplasty. Discharge Data Consultations 01/08/19 15:02 Consult Case Management - Discharge Planning Routine Procedures Performed Operation Date: 01/08/19 11:30 Actual Procedures p Right Total Knee Arthroplasty(Right) - Shar Elliott DO
--- NOTE | 2019-01-12 07:41 | Discharge Summary ---
Date of Service January 12, 2019 Admission HPI Per Admitting Provider Patient is a pleasant 63-year-old female who is been dealing with chronic increasing right knee pain. X-rays, MRI, and clinical examination have all been diagnostic for advanced osteoarthritis of the right knee. After failing extensive conservative treatment, she has elected proceed with a right total knee arthroplasty. Specialty Data Orthopedic H & H 12/15/18 01/09/19 Range/Units 11:25 05:53 Hgb 13.2 11.1 L (12.0-16.0) g/dL Hct 40.0 32.5 L (37-47) % Coagulation 12/15/18 Range/Units 11:25 INR 0.9 (0.9-1.1) Discharge Data Consultations 01/08/19 15:02 Consult Case Management - Discharge Planning Routine Procedures Performed Operation Date: 01/08/19 11:30 Actual Procedures p Right Total Knee Arthroplasty(Right) - Shar Elliott DO [facility] Course (1) Osteoarthritis of right knee: On January 08, 2019 the patient arrived at [facility] and underwent a right total knee arthroplasty without complication. She had a spinal anesthetic and a right adductor nerve block. Postoperatively she was started on aspirin for DVT prophylaxis and discharged to general orthopedic floors. Her hospital course is uneventful. On postop day #1 her H&H was stable and her pain was well controlled. She was able to ambulate well with physical therapy. She was having more pain later in the day. On postop day #2 she was doing better. Her pain was controlled on the oral pain medications. She contin ued to participate well with physical therapy. She was then discharged to home with physical therapy. She will be on aspirin for DVT prophylaxis. She will follow-up with orthopedics in 2 weeks. Discharge Instructions Home Medications Medication Instructions Recorded Confirmed Black Seed Oil 5 ml PO BID 12/08/18 01/08/19 Calcium Magnesium 1 tab PO BID 12/08/18 01/08/19 Eye Dandridge Advantage 2 tab PO BID 12/08/18 01/08/19 levothyroxine [Synthroid] 25 mcg PO QAM 12/08/18 01/08/19 meclizine 12.5 mg PO TID PRN 12/08/18 01/08/19 Xiidra 1 drp OPHTHALMIC (EYE) BID 01/08/19 01/08/19 Previous Rx's Medication Instructions Recorded aspirin [Ecotrin Low Strength] 81 mg PO BID #84 tab 01/09/19 oxycodone 5 - 10 mg PO Q4H PRN #40 tab 01/09/19
== END 2019-01-10 11:32 | disposition home health service (06) | DRG 470 ==
LOC: ASU 09:14 → 3E 13:27